=== PATIENT | female | born 1985 ===

== ENCOUNTER 2018-10-08 12:32 | Emergency (ER) | payer OTHER ==
[~2018-10-08] VITALS: Ht 162.6 cm; Wt 79.4 kg
[2018-10-08] MEDS ORDERED: Sudogest30 MG PO (13:32)
[2018-10-08] MEDS ORDERED: IBUP600 PO (13:32)
[2018-10-08] MEDS ORDERED: Flonase 0.05% N16 GM (13:32)
== END 2018-10-08 13:38 | disposition home or self-care (01) ==
LOC: ER 12:32
DX: J35.8 Other chronic diseases of tonsils and adenoids (principal); Z23 Encounter for immunization; Z88.5 Allergy status to narcotic agent; Z88.6 Allergy status to analgesic agent
CPT/HCPCS: 87081; 87430; 90471; 90714; 99283-25; J1100